=== PATIENT | male | born 1995 | race Caucasian/White ===

== ENCOUNTER 2016-11-02 09:54 | Emergency (ER) | payer OTHER ==
[~2016-11-02] VITALS: Ht 157.5 cm; Wt 74.2 kg
[2016-11-02 11:29] LABS: MCHC 34.1 G/DL (30.0-36.0); MEAN PLAT.VOLUME 9.3 uM^3 (9.0-12.4); PLATELET COUNT 301 K/uL (156-360); RBC DIS.WIDTH-CV 11.9 % (11.8-14.6); RBC DIS.WIDTH-SD 35.6 % (39-53); RED BLOOD COUNT 5.61 M/uL (4.00-5.50); WHITE BLOOD COUNT 7.5 K/uL (4.1-10.2)
[2016-11-02 11:42] LABS: CHLORIDE 99 mEq/L (99-109); POTASSIUM 3.7 mEq/L (3.7-5.4); SODIUM 136 mEq/L (136-147)
[2016-11-02 11:44] LABS: GLUCOSE 96 mg/dL (70-99)
[2016-11-02 11:45] LABS: ANION GAP 9 MEQ/L (2-14)
[2016-11-02 11:46] LABS: TOTAL BILIRUBIN 0.5 mg/dL (0.0-1.0)
[2016-11-02 11:47] LABS: ALKALINE PHOSPHATASE 93 IU/L (3-129)
[2016-11-02 11:48] LABS: GFR ESTIMATE (CALCULATED) > 59 mL/min/
[2016-11-02 11:49] LABS: UREA NITROGEN (BUN) 9 mg/dL (9-23)
[2016-11-02 12:18] LABS: C-REACTIVE PROTEIN 26.4 MG/L (0-10)
[2016-11-02 13:17] LABS: ADD MIUA? NO; BILIRUBIN NEGATIVE; BLOOD NEGATIVE; COLOR YELLOW ((YELLOW)); GLUCOSE (STRIP) NEGATIVE; KETONES NEGATIVE; LEUKOCYTES NEGATIVE; NITRITE NEGATIVE; PROTEIN (STRIP) NEGATIVE; SPECIFIC GRAVITY 1.011 (1.000-1.030); UCUL ADDED? NO; UROBILINOGEN 0.2 MG/DL (0.2-1.0)
[2016-11-02 16:16] VITALS: BP 143/94
== END 2016-11-02 16:17 | disposition home or self-care (01) ==
LOC: EME 09:54
PROVIDERS: Emergency Medicine
DX: K63.89 Other specified diseases of intestine (principal); Q43.8 Other specified congenital malformations of intestine; R05 Cough; F17.200 Nicotine dependence, unspecified, uncomplicated; Z88.0 Allergy status to penicillin
CPT/HCPCS: 71020; 74177; 80053; 81003; 85027; 86140; 93005; 99281; 99285; J1885; J7030

== ENCOUNTER 2016-11-05 09:49 | Emergency (ER) | payer OTHER ==
[~2016-11-05] VITALS: Ht 157.5 cm; Wt 73.3 kg
[2016-11-05 10:47] LABS: HEMATOCRIT 47.7 % (38.0-50.0); MCH 27.5 PG (29.0-34.0); MCHC 33.5 G/DL (30.0-36.0); PLATELET COUNT 358 K/uL (156-360); RBC DIS.WIDTH-CV 11.9 % (11.8-14.6); RBC DIS.WIDTH-SD 35.5 % (39-53); RED BLOOD COUNT 5.82 M/uL (4.00-5.50); WHITE BLOOD COUNT 4.2 K/uL (4.1-10.2)
[2016-11-05 11:02] LABS: CHLORIDE 104 mEq/L (99-109); SODIUM 138 mEq/L (136-147)
[2016-11-05 11:04] LABS: GLUCOSE 89 mg/dL (70-99)
[2016-11-05 11:05] LABS: ANION GAP 8 MEQ/L (2-14)
[2016-11-05 11:07] LABS: ALKALINE PHOSPHATASE 94 IU/L (3-129); GFR ESTIMATE (CALCULATED) > 59 mL/min/; TOTAL BILIRUBIN 0.3 mg/dL (0.0-1.0)
[2016-11-05 11:09] LABS: UREA NITROGEN (BUN) 12 mg/dL (9-23)
[2016-11-05 11:11] LABS: LIPASE 31 U/L (1.0-51.0)
[2016-11-05 12:52] VITALS: BP 147/98
== END 2016-11-05 12:52 | disposition home or self-care (01) ==
LOC: EME 09:49
PROVIDERS: Physician Assistant Medical
DX: K63.89 Other specified diseases of intestine (principal); F17.200 Nicotine dependence, unspecified, uncomplicated; Z88.1 Allergy status to other antibiotic agents
CPT/HCPCS: 80053; 81003; 83690; 85027; 99281; 99284